=== PATIENT | female | born 1945 | race Hispanic/Latino ===

== ENCOUNTER 2024-07-04 13:29 | Emergency (ER) | payer OTHER ==
[~2024-07-04] VITALS: Ht 152.4 cm; Wt 66.2 kg
[2024-07-04 13:58] LABS: RAPID GROUP A STREP negative (NEGATIVE)
[2024-07-04 14:08] LABS: COVID19 (SARS ANTIGEN RAPID) PRESUMPTIVE NEGATIVE (NEGATIVE); INFLUENZA TYPE A Negative For Type A (NEGATIVE); INFLUENZA TYPE B Negative For Type B (NEGATIVE)
[2024-07-04 14:18] LABS: BASOPHILS # (AUTO) 0.08 K/uL (0.00-0.20); BASOPHILS % (AUTO) 0.9 % (0.0-5.0); EOSINOPHILS # (AUTO) 1.21 K/uL (0.00-0.70); EOSINOPHILS % (AUTO) 13.4 % (0.0-8.0); HEMATOCRIT 33.3 % (36-48); IMMATURE GRANULOCYTE ABSOLUTE 0.03 K/uL (0-1); MEAN CORPUSCULAR HEMOGLOBIN 28.5 pg (27.0-33.0); MEAN CORPUSCULAR HGB CONC 32.1 g/dL (32.0-36.0); MEAN CORPUSCULAR VOLUME 88.8 fL (79-99); MONOCYTES # (AUTO) 0.8 K/uL (0.1-1.0); NEUTROPHILS # (AUTO) 4.9 K/uL (1.8-7.7); NEUTROPHILS % (AUTO) 54.4 % (40.0-77.0); PLATELET COUNT (AUTO) 421 K/uL (130-400); RED BLOOD CELL COUNT(AUTO) 3.75 MIL/uL (4.00-5.50); RED CELL DISTRIBUTION WIDTH 14.8 % (11.0-15.5)
[2024-07-04 14:30] LABS: POTASSIUM 4.1 mmol/L (3.5-5.1)
[2024-07-04 14:40] LABS: ALBUMIN 3.2 g/dL (3.5-5.0); BILIRUBIN,TOTAL 0.2 mg/dL (0.2-1.0); TOTAL PROTEIN, SERUM 7.9 g/dL (6.0-8.3)
[2024-07-04 14:41] LABS: B-TYPE NATRIURETIC PEPTIDE 530 pg/mL (0-100)
[2024-07-04 14:45] VITALS: TEMP 99
[2024-07-04] MEDS: acetaMINOPHEN 500 MG TABLET PO ONE (14:45)
[2024-07-04] MEDS ORDERED: ALBUHFA IH (16:47)
[2024-07-04] MEDS ORDERED: BENZ-39 PO (16:47)
[2024-07-04 17:06] VITALS: BP 141/88; PULSE 86; RESP 18; O2SAT 97
[2024-07-04] MEDS: DEXAMETHASONE SOD PHOSPHATE 4 MG/ML 1ML VIAL IM ONE (17:06)
[2024-07-04] MEDS: FUROSEMIDE 40 MG TABLET PO ONE (17:06)
== END 2024-07-04 17:10 | disposition home or self-care (01) ==
LOC: EDH 13:29
DX: M94.0 Chondrocostal junction syndrome [Tietze] (principal); R05.9 Cough, unspecified; R79.89 Other specified abnormal findings of blood chemistry; E11.65 Type 2 diabetes mellitus with hyperglycemia; I10 Essential (primary) hypertension; I25.10 Atherosclerotic heart disease of native coronary artery without angina pectoris; I49.1 Atrial premature depolarization; Z20.822 Contact with and (suspected) exposure to COVID-19; Z88.0 Allergy status to penicillin; Z95.1 Presence of aortocoronary bypass graft
CPT/HCPCS: 99285; 71045; 87426; 84484; 80053; 83880; 85025; 87880; 87804 ×2; 36415; 96372; 93005; J1100

== ENCOUNTER 2024-08-07 12:26 | Emergency (ER) | payer OTHER ==
[~2024-08-07] VITALS: Ht 152.4 cm; Wt 66.2 kg
[~2024-08-07 12:26] MED LIST: ALBUHFA IH; BENZ-39 PO
--- NOTE | 2024-08-07 12:48 | ERN ---
ED Note History of Present Illness Stated Complaint: CHEST PAIN Chief Complaint: Chest Pain Time Seen by MD: 12:31 Dictation: PATIENT IS A 78-YEAR-OLD FEMALE HERE WITH HER [id number] WITH COMPLAINTS OF BILATERAL AND ANTERIOR CHEST WALL PAIN AND THORACIC PAIN STATUS POST A SAME LEVEL FALL TWO DAYS AGO. SHE STATES SHE WAS ON THE COMMODE HAVING A BOWEL MOVEMENT, SHE STOOD UP AND GOT DIZZY FELL DOWN HIT HER CHEST. NO LOC NO NAUSEA VOMITING. SHE IS ON PLAVIX, DID NOT GO SEE HER PRIMARY CARE DOCTOR NOR DID SHE GET TAKEN TO THE EMERGENCY ROOM. ECCHYMOSIS NOTED MILD LEAD TO LEFT ANTERIOR CHEST AND INFERIOR BREASTS. NO MIDLINE SPINE PAIN NO STEP-OFF. PATIENT IS TENDER TO BILATERAL LATERAL CHEST AND ANTERIOR CHEST DIFFUSELY. BILATERAL BREATH SOUNDS ARE CLEAR LAST TOOK TYLENOL LAST NIGHT. SHE DENIES HIP OR PELVIC PAIN. FULLY AMBULATORY Allergies: Coded Allergies: Penicillins (Unverified Allergy, Unknown, 07/04/24) Home Meds Active Scripts Albuterol Sulfate (Ventolin Hfa/Proventil Hfa/Proair Hfa) 90 Mcg Puff, 2 PUFF IH Q4H for WHEEZING, #1 INHALER 0 Refills Prov:ARMOND SUTTON NP 07/04/24 Benzonatate (Tessalon Perles) 100 Mg Cap, 200 MG PO TID for cough, #60 CAP 0 Refills TWO CAPSULES BY MOUTH EVERY8 HOURS NEEDED FOR COUGH Prov:ARMOND SUTTON NP 07/04/24 Past Medical History Past Medical History: CAD, Diabetes-Type II, High Cholesterol, Hypertension Surgical History: CABG PSYCH History: no pertinent psych hx History: Not Applicable RN Note Reviewed/Agreed w/PFSH: Yes Review of System Dictation CONSTITUTIONAL: NEGATIVE EXCEPT FOR HPI HEAD/FACE: NEGATIVE EXCEPT FOR HPI EENT: NEGATIVE EXCEPT FOR HPI RESPIRATORY: NEGATIVE EXCEPT FOR HPI BILATERAL CHEST WALL TENDERNESS WITH ECCHYMOSIS AND ANTERIOR CHEST WALL GASTROINTESTINAL/ABDOMINAL: NEGATIVE EXCEPT FOR HPI GENITOURINARY: NEGATIVE EXCEPT FOR HPI MUSCULOSKELETAL: NEGATIVE EXCEPT FOR HPI DISTAL THORACIC PAIN NO STEP-OFF INTEGUMENTARY: NEGATIVE EXCEPT FOR HPI NEUROLOGICAL/PSYCH: NEGATIVE EXCEPT FOR HPI HEMATOLOGIC/LYMPHATIC: NEGATIVE EXCEPT FOR HPI ALL SYSTEMS NEGATIVE, EXCEPT NOTED ABOVE. 13 POINT REVIEW OF SYSTEMS ASSESSED AND ALL NEGATIVE EXCEPT FOR ABOVE. Initial Vital Sign VS Vital Signs Date Time Temp Pulse Resp B/P (MAP) Pulse Ox O2 Delivery O2 Flow Rate FiO2 08/07/24 12:31 98.8 74 20 189/83 95 Room Air 08/07/24 12:55 0 21 Physical Exam Dictation VITAL SIGNS REVIEWED GENERAL APPEARANCE: ALERT, ORIENTED X 3, MILD ACUTE DISTRESS, WELL DEVELOPED, NOURISHED. HEAD AND FACE: NON-TRAUMATIC. EYES: PERRL, PINK CONJUNCTIVAS, EYELID NO TRAUMA, ANTERIOR CHAMBER WITH ARCUS SENILIS. EARS: PINNAS INTACT AND NO SIGNS OF TRAUMA OR ERYTHEMA EAR CANALS CLEAR AND NO DISCHARGE TM NO ERYTHEMA NOSE: NO DISCHARGE, NO BLEEDING. OROPHARYNX: MOUTH NORMAL, TONGUE PINK, PHARYNX CLEAR,NO ERYTHEMA, TONSILS NO EXUDATES, NO ABSCESSES NOTED, MUCOUS MEMBRANE MOIST NECK: SUPPLE, NON-TENDER, NO THYROMEGALY, NO MASSES, NO JVD, NO BRUITS BREAST:DEFERRED CHEST: BILATERAL LATERAL AND ANTERIOR CHEST WALL TENDERNESS WITH PALPATION NO FLAIL T, NO CREPITUS, NO PARADOXICAL MOVEMENT, NO RETRACTIONS ECCHYMOSIS NOTED TO LEFT ANTERIOR CHEST AND UNDER LEFT BREAST LUNGS:CLEAR, WELL-VENTILATED, SYMMETRIC, NO RALES, NO WHEEZING, NO RHONCHI, NO STRIDOR, GOOD BREATH SOUNDS BILATERALLY HEART: REGULAR RATE, REGULAR RHYTHM, NO MURMUR, NO GALLOPS VASCULAR: NO PERIPHERAL EDEMA, ABDOMEN: SOFT, POSITIVE BOWEL SOUNDS, NONDISTENDED, NO GUARDING, NONTENDER, NO REBOUND, NO MASSES NO HEPATOMEGALY, NO SPLENOMEGALY, NO GARVEY'S SIGN, NO HERNIAS. RECTAL: DEFERRED GENITAL: DEFERRED NEUROLOGICAL: NORMAL SPEECH, MOTOR FUNCTION INTACT, SENSORY FUNC MILD DIFFUSE LOWER THORACIC SPINE PAIN. NO STEP-OFF, FULL RANGE OF MOTION, EXTREMITIES: NONTENDER, FULL RANGE OF MOTION NO PELVIC OR HIP PAIN SKIN: COLOR PINK, DRY, NO TURGOR, NO RASH, NO LACERATIONS, NO ABRASIONS, NO CONTUSIONS. LYMPHATIC: DEFERRED Results (Laboratory/Radiology) Laboratory/Radiology Laboratory Tests Test 08/07/24 12:50 08/07/24 13:22 08/07/24 13:24 08/07/24 14:11 White Blood Count 11.5 K/uL (4.8-10.8) H Red Blood Count 4.01 MIL/uL (4.00-5.50) Hemoglobin 11.4 g/dL (12.0-16.0) L Hematocrit 35.4 % (36-48) L Mean Corpuscular Volume 88.3 fL (79-99) Mean Corpuscular Hemoglobin 28.4 pg (27.0-33.0) Mean Corpuscular Hemoglobin Concent 32.2 g/dL (32.0-36.0) Red Cell Distribution Width 13.6 % (11.0-15.5) Platelet Count 356 K/uL (130-400) Mean Platelet Volume 9.8 fL (7.5-10.5) Immature Granulocyte % (Auto) 0.4 % (0-1) Neutrophils (%) (Auto) 51.8 % (40.0-77.0) Lymphocytes (%) (Auto) 25.0 % (21.0-51.0) Monocytes (%) (Auto) 7.9 % (3.0-13.0) Eosinophils (%) (Auto) 14.2 % (0.0-8.0) H Basophils (%) (Auto) 0.7 % (0.0-5.0) Neutrophils # (Auto) 6.0 K/uL (1.8-7.7) Lymphocytes # (Auto) 2.9 K/uL (1.0-4.8) Monocytes # (Auto) 0.9 K/uL (0.1-1.0) Eosinophils # (Auto) 1.63 K/uL (0.00-0.70) H Basophils # (Auto) 0.08 K/uL (0.00-0.20) Absolute Immature Granulocyte (auto 0.05 K/uL (0-1) Nucleated Red Blood Cells 0.0 % (0.0-0.19) Sodium Level 142 mmol/L (136-145) Potassium Level 4.9 mmol/L (3.5-5.1) Chloride Level 106 mmol/L (101-111) Carbon Dioxide Level 31 mmol/L (21-32) Blood Urea Nitrogen 17 mg/dL (7-18) Creatinine 1.1 mg/dL (0.5-1.0) H Glomerular Filtration Rate Calc 51 mL/min (>90) Random Glucose 146 mg/dL (70-105) H Total Calcium 9.2 mg/dL (8.5-10.1) Total Creatine Kinase 44 U/L (21-232) Troponin I High Sensitivity 15 ng/L (4-50) B-Type Natriuretic Peptide 320 pg/mL (0-100) H Troponin I < 0.05 ng/mL (0.00-0.05) < 0.05 ng/mL (0.00-0.05) Urine Color COLORLESS (YELLOW) Urine Appearance CLEAR (CLEAR) Urine pH 6.5 (5.0-8.0) Urine Specific [place] 1.007 (1.001-1.031) Urine Protein 10 mg/dL (NEGATIVE) H Urine Glucose (UA) NEGATIVE mg/dL (NEGATIVE) Urine Ketones NEGATIVE mg/dL (NEGATIVE) Urine Occult Blood NEGATIVE (NEGATIVE) Urine Nitrate NEGATIVE (NEGATIVE) Urine Bilirubin NEGATIVE mg/dL (NEGATIVE) Urine Urobilinogen 0.2 mg/dL (0.2-1.0) Urine Leukocyte Esterase NEGATIVE Jerome/uL Urine RBC None /HPF (0-1) Urine WBC 0-1 /HPF (0-1) Urine Squamous Epithelial Cells FEW /HPF (0-2) Urine Bacteria RARE /HPF (None Seen) REASON: BILATERAL AND ANTERIOR CHEST PAIN ECCHYMOSIS FROM FALL TWO DAYS AGO TECHNIQUE: 9 views were obtained. FINDINGS: PA chest x-ray shows clear lungs. Heart size is normal. There is been previous median sternotomy. Bilateral rib series shows normal findings. There are no visible rib fractures. Soft tissues appear unremarkable. IMPRESSION: 1. Negative PA chest x-ray and bilateral rib series. THORACIC SPINE 2VWS REASON: THORACIC SPINE PAIN STATUS POST FALL TWO DAYS AGO COMPARISON: None. TECHNIQUE: 2 images were obtained. FINDINGS: There are normal appearing vertebral bodies. Interspace heights are well preserved. There are no visible fractures. Soft tissues appear unremarkable. IMPRESSION: 1. Normal views of the thoracic spine. Labs Reviewed?: Yes EKG Comment: EKG sinus rhythm/heart rate 75/left atrial enlargement T-wave flattening V5 V6 ED Course ED Course Orders Procedure Category Date Status Time Vital Signs Per CPOE 08/07/24 Transmitted Routine 12:30 B-Type Natriuretic LAB 08/07/24 Complete Peptide 12:30 12 Lead Ekg Tracing- EKG 08/07/24 Logged Technical 12:30 Oxygen By Nc/Pulse Ox CPOE 08/07/24 Transmitted 12:30 Maintain Iv CPOE 08/07/24 Transmitted 12:30 Iv Insertion CPOE 08/07/24 Transmitted 12:30 Cardiac Monitoring CPOE 08/07/24 Transmitted 12:30 Pulse Oximetry With CPOE 08/07/24 Transmitted Vs And Prn 12:30 Cbc With Differential LAB 08/07/24 Complete 12:30 Activity: Br W/Brp CPOE 08/07/24 Transmitted With Assist 12:30 Creatine Kinase, Total LAB 08/07/24 Complete 12:30 Troponin I High LAB 08/07/24 Complete Sensitivity 12:30 Urinalysis Profile LAB 08/07/24 Complete 12:30 Troponin Poc Order LAB 08/07/24 Complete Only 12:30 Bedside Troponin-I LAB.ER 08/07/24 In Process (Poc) 12:30 Basic Metabolic Panel LAB 08/07/24 Complete 12:30 Ribs Bilat [employer] Pa RAD 08/07/24 Resulted Chest 4+Vws 12:44 Acetaminophen With PHA 08/07/24 Complete Codeine (Tylenol-Code 13:00 Thoracic Spine 2vws RAD 08/07/24 Resulted 12:45 Current Medications Medications (Trade) Dose Ordered Sig/Wilfred Route PRN Reason Start Time Stop Time Status Last Admin Dose Admin Acetaminophen/ Codeine Phosphate (TYLenol-coDEINE TAB) 1 tab ONCE ONCE PO 08/07/24 13:00 08/07/24 13:01 DC 08/07/24 12:57 Vital Signs Date Time Temp Pulse Resp B/P (MAP) Pulse Ox O2 Delivery O2 Flow Rate FiO2 08/07/24 14:34 66 14 178/62 97 Room Air* 0 21 08/07/24 12:55 70 19 184/77 98 Room Air* 0 21 08/07/24 12:31 98.8 74 20 189/83 95 Room Air 1525, ALL X-RAYS NEGATIVE CARDIAC WORKUP IS NEGATIVE PATIENT WILL BE DISCHARGED HOME WITH CHEST WALL CONTUSION LUMBAR STRAIN CHRONIC KIDNEY DISEASE. SHE WAS TOLD TO SEE YOUR PRIMARY CARE DOCTOR IN 1-2 DAYS TYLENOL ONLY FOR PAIN HEART Score Response (Comments) Value History: Moderate suspicion (+1) 1 Age: > 65yrs (+2) 2 Risk Factors: 1-2 risk factors (+1) 1 Initial Troponin: Normal limit (0) 0 Total 4 Medical Decision Making [facility] DISCHARGE MAKING BASED ON RADIOLOGY LABS AND EKG. X-RAYS NEGATIVE OF CHEST RIBS AND BACK CARDIAC WORKUP NORMAL PATIENT DISCHARGED HOME WITH CONTUSIONS AND CHRONIC KIDNEY PAIN TOLD TYLENOL ONLY FOR PAIN AND SEE YOUR PRIMARY CARE DOCTOR DX & DISP Disposition: Discharge Departure Impression: Primary Impression: Acute thoracic myofascial strain Additional Impressions: Contusion, chest wall, Chronic kidney disease, Fall Condition: Stable Additional Instructions: FOLLOW-UP WITH PRIMARY CARE PROVIDER IN 1 TO 2 DAYS. TAKE MEDICATIONS DIRECTED HERE IN THE EMERGENCY ROOM. OKAY TO CONTINUE HOME MEDICATIONS UNLESS OTHERWISE DISCUSSED DURING YOUR VISIT IN THE EMERGENCY ROOM TODAY. RETURN TO YOUR NEAREST EMERGENCY ROOM IF SYMPTOMS WORSEN OR IF THERE IS NO IMPROVEMENT. CALL 911 IF YOU NEED IMMEDIATE ASSISTANCE. TAKE TYLENOL OR MOTRIN [id number] NEEDED AND IF NO CONTRAINDICATIONS ARE PRESENT. INCREASE ORAL HYDRATION. A WOUND CULTURE OR URINE CULTURE WAS ORDERED HERE IN THE EMERGENCY ROOM DEPARTMENT PLEASE FOLLOW-UP WITH PRIMARY CARE PROVIDER AND ADVISE THEM TO GET REPEAT PORTS FROM OUR FACILITY. IF YOU HAD ANY FAISAL WRAP/SPLINTS THAT WERE APPLIED HERE, PLEASE DO NOT REMOVE THEM UNTIL YOU SEE YOUR PRIMARY CARE OR SPECIALTY. SUGGEST TYLENOL ARTHRITIS 650 MG/[id number] EVERY 8 HOURS NEEDED FOR PAIN. SEE YOUR PRIMARY CARE DOCTOR Referrals: GINNA NGUYỄN MD (PCP) Time of Disposition: 15:28 I have reviewed the case, and I agree with, Diagnosis and Plan ARMOND SUTTON NP Aug 07, 2024 12:48
[2024-08-07] MEDS: acetaMINOPHEN WITH coDEINE 1 TAB TAB PO ONE (12:57)
[2024-08-07 13:06] LABS: BASOPHILS # (AUTO) 0.08 K/uL (0.00-0.20); BASOPHILS % (AUTO) 0.7 % (0.0-5.0); EOSINOPHILS # (AUTO) 1.63 K/uL (0.00-0.70); EOSINOPHILS % (AUTO) 14.2 % (0.0-8.0); HEMATOCRIT 35.4 % (36-48); IMMATURE GRANULOCYTE ABSOLUTE 0.05 K/uL (0-1); LYMPHOCYTES # (AUTO) 2.9 K/uL (1.0-4.8); MEAN CORPUSCULAR HEMOGLOBIN 28.4 pg (27.0-33.0); MEAN CORPUSCULAR HGB CONC 32.2 g/dL (32.0-36.0); MEAN CORPUSCULAR VOLUME 88.3 fL (79-99); MONOCYTES # (AUTO) 0.9 K/uL (0.1-1.0); MONOCYTES % (AUTO) 7.9 % (3.0-13.0); NEUTROPHILS % (AUTO) 51.8 % (40.0-77.0); PLATELET COUNT (AUTO) 356 K/uL (130-400); RED BLOOD CELL COUNT(AUTO) 4.01 MIL/uL (4.00-5.50); RED CELL DISTRIBUTION WIDTH 13.6 % (11.0-15.5); WHITE BLOOD COUNT (AUTO) 11.5 K/uL (4.8-10.8)
[2024-08-07 13:21] LABS: CREATININE 1.1 mg/dL (0.5-1.0); POTASSIUM 4.9 mmol/L (3.5-5.1)
[2024-08-07 13:30] LABS: B-TYPE NATRIURETIC PEPTIDE 320 pg/mL (0-100)
--- NOTE | 2024-08-07 14:11 | HMCIMG ---
THORACIC SPINE 2VWS REASON: THORACIC SPINE PAIN STATUS POST FALL TWO DAYS AGO COMPARISON: None. TECHNIQUE: 2 images were obtained. FINDINGS: There are normal appearing vertebral bodies. Interspace heights are well preserved. There are no visible fractures. Soft tissues appear unremarkable. IMPRESSION: 1. Normal views of the thoracic spine.
--- NOTE | 2024-08-07 14:12 | HMCIMG ---
[employer] PA CHEST 4+VWS REASON: BILATERAL AND ANTERIOR CHEST PAIN ECCHYMOSIS FROM FALL TWO DAYS AGO TECHNIQUE: 9 views were obtained. FINDINGS: PA chest x-ray shows clear lungs. Heart size is normal. There is been previous median sternotomy. Bilateral rib series shows normal findings. There are no visible rib fractures. Soft tissues appear unremarkable. IMPRESSION: 1. Negative PA chest x-ray and bilateral rib series.
[2024-08-07 14:25] LABS: APPEARANCE,URINE CLEAR (CLEAR); BILIRUBIN,URINE NEGATIVE (NEGATIVE); COLOR,URINE COLORLESS (YELLOW); GLUCOSE, URINE (UA) NEGATIVE (NEGATIVE); KETONES,URINE NEGATIVE (NEGATIVE); LEUKOCYTE ESTERASE ,URINE NEGATIVE Leu/uL (NEGATIVE); NITRATE,URINE NEGATIVE (NEGATIVE); OCCULT BLOOD,URINE NEGATIVE (NEGATIVE); PH,URINE 6.5 (5.0-8.0); PROTEIN,URINE 10 mg/dL (NEGATIVE); UROBILINOGEN,URINE 0.2 mg/dL (0.2-1.0)
[2024-08-07 14:30] LABS: ADD UA MICROSCOPIC YES
[2024-08-07 14:32] LABS: BACTERIA,URINE RARE /HPF (None Seen); SQUAMOUS EPITHELIAL CELL,UR FEW /HPF (0-2); WBC,URINE 0-1 /HPF (0-1)
[2024-08-07 15:49] VITALS: BP 175/65; PULSE 62; RESP 14; TEMP 98.3; O2SAT 97
--- NOTE | 2024-08-08 06:52 | EKG ---
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
== END 2024-08-07 15:54 | disposition home or self-care (01) ==
LOC: EDH 12:26
DX: S20.213A Contusion of bilateral front wall of thorax, initial encounter (principal); M54.6 Pain in thoracic spine; I12.9 Hypertensive chronic kidney disease with stage 1 through stage 4 chronic kidney disease, or unspecified chronic kidney disease; E11.22 Type 2 diabetes mellitus with diabetic chronic kidney disease; R42 Dizziness and giddiness; N18.9 Chronic kidney disease, unspecified; I25.10 Atherosclerotic heart disease of native coronary artery without angina pectoris; E78.00 Pure hypercholesterolemia, unspecified; Z88.0 Allergy status to penicillin; Z79.899 Other long term (current) drug therapy; W18.11XA Fall from or off toilet without subsequent striking against object, initial encounter; Y93.E8 Activity, other personal hygiene; Y92.091 Bathroom in other non-institutional residence as the place of occurrence of the external cause; Y99.8 Other external cause status
CPT/HCPCS: 36415; 71111; 72070; 80048; 81001; 82550; 83880; 84484; 85025; 93005

== ENCOUNTER 2024-08-27 14:41 | Emergency (ER) | payer OTHER ==
[~2024-08-27] VITALS: Ht 152.4 cm; Wt 67.6 kg
--- NOTE | 2024-08-27 15:14 | ERN ---
ED Note History of Present Illness Stated Complaint: PAIN ON HER BACK, LOWER BACK AND CHEST PAIN Chief Complaint: Back Pain-No Injury Time Seen by MD: 14:41 Dictation: PATIENT IS A 78-YEAR-OLD FEMALE HERE WITH HER DAUGHTER WITH COMPLAINTS OF HAVING DIFFUSE ANTERIOR CHEST WALL TENDERNESS WITH LUMBAR AND THORACIC MIDLINE SPINE PAIN STATUS POST A FALL WHILE ON THE HOSPITAL PREMISES ON . ACCORDING TO THE DOCTOR SHE WAS GOING TO RADIOLOGY SHE WHEN SHE FELL. SHE WAS TAKEN BACK TO THE EMERGENCY ROOM WAS X-RAYED AND WAS RELEASED TO HER DOCTOR, SAW HER DOCTOR WHO REFERRED HER TO A CHIROPRACTOR WAS SUPPOSED TO GO YESTERDAY HOWEVER DECIDED TO COME BACK TO THE HOSPITAL TODAY. SHE HAS BEEN TAKEN OUT TYLENOL ONLY FOR PAIN NO SHORTNESS A BREATH NEUROVASCULAR CMS INTACT TO ALL EXTREMITIES. NO STEP-OFFS TO MIDLINE SPINE THORACIC OR LUMBAR. NEGATIVE STRAIGHT LEG RAISE BILATERALLY 10 BILATERALLY Allergies: Coded Allergies: Penicillins (Unverified Allergy, Unknown, 07/04/24) Home Meds Active Scripts Albuterol Sulfate (Ventolin Hfa/Proventil Hfa/Proair Hfa) 90 Mcg Puff, 2 PUFF IH Q4H for WHEEZING, #1 INHALER 0 Refills Prov:ARMOND SUTTON NP 07/04/24 Benzonatate (Tessalon Perles) 100 Mg Cap, 200 MG PO TID for cough, #60 CAP 0 Refills TWO CAPSULES BY MOUTH EVERY8 HOURS NEEDED FOR COUGH Prov:ARMOND SUTTON NP 07/04/24 Past Medical History Past Medical History: CAD, Diabetes-Type II, High Cholesterol, Hypertension Surgical History: CABG History: Not Applicable RN Note Reviewed/Agreed w/PFSH: Yes Review of System Dictation CONSTITUTIONAL: NEGATIVE EXCEPT FOR HPI HEAD/FACE: NEGATIVE EXCEPT FOR HPI EENT: NEGATIVE EXCEPT FOR HPI RESPIRATORY: NEGATIVE EXCEPT FOR HPI DIFFUSE ANTERIOR CHEST WALL TENDERNESS GASTROINTESTINAL/ABDOMINAL: NEGATIVE EXCEPT FOR HPI GENITOURINARY: NEGATIVE EXCEPT FOR HPI MUSCULOSKELETAL: NEGATIVE EXCEPT FOR HPI DIFFUSE LUMBAR AND THORACIC TENDERNESS WITH PALPATION NO STEP-OFF INTEGUMENTARY: NEGATIVE EXCEPT FOR HPI NEUROLOGICAL/PSYCH: NEGATIVE EXCEPT FOR HPI HEMATOLOGIC/LYMPHATIC: NEGATIVE EXCEPT FOR HPI ALL SYSTEMS NEGATIVE, EXCEPT NOTED ABOVE. 13 POINT REVIEW OF SYSTEMS ASSESSED AND ALL NEGATIVE EXCEPT FOR ABOVE. Initial Vital Sign VS Vital Signs Date Time Temp Pulse Resp B/P (MAP) Pulse Ox O2 Delivery O2 Flow Rate FiO2 08/27/24 14:52 99.0 74 14 158/50 96 Room Air 0 Physical Exam Dictation VITAL SIGNS REVIEWED GENERAL APPEARANCE: ALERT, ORIENTED X 3, MODERATE ACUTE DISTRESS, WELL DEVELOPED, NOURISHED. HEAD AND FACE: NON-TRAUMATIC. EYES: PERRL, PINK CONJUNCTIVAS, EYELID NO TRAUMA, ANTERIOR CHAMBER WITH ARCUS SENILIS. EARS: PINNAS INTACT AND NO SIGNS OF TRAUMA OR ERYTHEMA EAR CANALS CLEAR AND NO DISCHARGE TM NO ERYTHEMA NOSE: NO DISCHARGE, NO BLEEDING. OROPHARYNX: MOUTH NORMAL, TONGUE PINK, PHARYNX CLEAR,NO ERYTHEMA, TONSILS NO EXUDATES, NO ABSCESSES NOTED, MUCOUS MEMBRANE MOIST NECK: SUPPLE, NON-TENDER, NO THYROMEGALY, NO MASSES, NO JVD, NO BRUITS BREAST:DEFERRED CHEST DIFFUSE ANTERIOR CHEST WALL TENDERNESS WITH PALPATION NO ECCHYMOSIS, NO CREPITUS, NO PARADOXICAL MOVEMENT, NO RETRACTIONS BILATERAL BREATH SOUNDS CLEAR LUNGS:CLEAR, WELL-VENTILATED, SYMMETRIC, NO RALES, NO WHEEZING, NO RHONCHI, NO STRIDOR, GOOD BREATH SOUNDS BILATERALLY HEART: REGULAR RATE, REGULAR RHYTHM, NO MURMUR, NO GALLOPS VASCULAR: NO PERIPHERAL EDEMA, ABDOMEN: SOFT, POSITIVE BOWEL SOUNDS, NONDISTENDED, NO GUARDING, NONTENDER, NO REBOUND, NO MASSES NO HEPATOMEGALY, NO SPLENOMEGALY, NO GARVEY'S SIGN, NO HERNIAS. RECTAL: DEFERRED GENITAL: DEFERRED NEUROLOGICAL: NORMAL SPEECH, MOTOR FUNCTION INTACT, SENSORY FUNCTION INTACT MUSCULOSKELETAL: NECK NONTENDER, FULL RANGE OF MOTION, DIFFUSE THORACIC AND LUMBAR TENDERNESS,, FULL RANGE OF MOTION, NO STEP-OFFS NO MIDLINE SPINE PAIN. EXTREMITIES: DECREASED RANGE OF MOTION TO BACK SECONDARY TO PAIN. NEGATIVE STRAIGHT LEG RAISE BILATERALLY 10 SKIN: COLOR PINK, DRY, NO TURGOR, NO RASH, NO LACERATIONS, NO ABRASIONS, NO CONTUSIONS. LYMPHATIC: DEFERRED Results (Laboratory/Radiology) Laboratory/Radiology THORACIC SPINE 2VWS HISTORY: Pain COMPARISON: None FINDINGS: 2 images of thoracic spine were obtained. Poststernotomy changes are seen. Degenerative changes are seen with spondylosis. There is straightening of normal lordotic curvature which may be related to muscle spasm or positioning. No loss of vertebral height is seen. No fracture or dislocation is seen. Degenerative changes are seen. IMPRESSION: 1. No fracture is seen. DJD. [employer] PA CHEST 4+VWS HISTORY: Status post fall COMPARISON: 08/07/2024 TECHNIQUE: Frontal projection of the chest was obtained. 6 images of bilateral ribs were obtained. FINDINGS: No acute pulmonary infiltrates is seen. The heart is not enlarged. Poststernotomy changes are seen. Aortic calcifications are seen. There is no acute displaced fracture or dislocation. Degenerative changes are seen. IMPRESSION: 1. Findings as described above. LUMBAR SPINE 2-3VWS HISTORY: Status post fall COMPARISON: None FINDINGS: 3 images of lumbar spine were obtained. Disc space narrowing is seen at the L4-5 and L5-S1 levels. Vascular calcifications are seen. There are degenerative changes with spondylosis. There is straightening of normal lordotic curvature which may be related to muscle spasm or positioning. No loss of vertebral height is seen. No fracture or dislocation is seen. Degenerative changes are seen. IMPRESSION: 1. No fracture is seen. DJD with spondylosis. Labs Reviewed?: Yes ED Course ED Course Orders Procedure Category Date Status Time Lumbar Spine 2-3vws RAD 08/27/24 Resulted 15:11 Thoracic Spine 2vws RAD 08/27/24 Resulted 15:11 Ribs [employer]at [employer] Pa RAD 08/27/24 Resulted Chest 4+Vws 15:11 Acetaminophen With PHA 08/27/24 Complete Codeine (Tylenol-Code 15:30 Current Medications Medications (Trade) Dose Ordered Sig/Wilfred Route PRN Reason Start Time Stop Time Status Last Admin Dose Admin Acetaminophen/ Codeine Phosphate (TYLenol-coDEINE TAB) 2 tab ONCE ONCE PO 08/27/24 15:30 08/27/24 15:31 DC Vital Signs Date Time Temp Pulse Resp B/P (MAP) Pulse Ox O2 Delivery O2 Flow Rate FiO2 08/27/24 14:52 99.0 74 14 158/50 96 Room Air 0 1645, PATIENT STATES PAIN IS REDUCED AFTER TYLENOL THREE. PATIENT AND DAUGHTER MADE AWARE OF NO ACUTE FINDINGS ON X-RAYS OTHER THAN DEGENERATIVE CHANGES. PATIENT AND DAUGHTER TOLD TO KEEP HER APPOINTMENT WITH THE CHIROPRACTOR AND/OR THEIR PRIMARY CARE DOCTOR FOR FOLLOW UP AND MANAGEMENT. AREA Medical Decision Making MDM MEDICAL DISCHARGE MAKING BASED ON X-RAYS OF THORACIC/LUMBAR/BILATERAL RIBS WITH CHEST. ALL X-RAYS WERE NEGATIVE EXCEPT FOR DEGENERATIVE CHANGES PATIENT DISCHARGED HOME WITH TYLENOL NO. 3 FOR SEVERE PAIN RECOMMENDED TYLENOL ARTHRITIS 650 MG/[id number] EVERY8 HOURS NEEDED FOR MILD PAIN. FOLLOW UP WITH A CHIROPRACTOR OR THEIR PRIMARY CARE DOCTOR DIRECTED. ACTIVITY TOLERATED DX & DISP Disposition: Discharge Departure Impression: Primary Impression: Contusion, chest wall Additional Impressions: Contusion of thoracic spine, Lumbar contusion, DJD (degenerative joint disease), lumbar, Fall Condition: Stable Scripts Acetaminophen with Codeine (Acetaminophen-Cod #3 Tablet) 300 Mg-30 Mg Tablet 1 TAB PO Q6H PRN for MODERATE TO SEVERE PAIN, #12 TAB 0 Refills Prov: ARMOND SUTTON NP 08/27/24 Additional Instructions: Follow-up with primary care provider in 1 to 2 days. Take medications as directed here in the emergency room. Okay to continue home medications unless otherwise discussed during your visit in the emergency room today. Return to your nearest emergency room if symptoms worsen or if there is no improvement. Call 911 if you need immediate assistance. Take Tylenol or Motrin [id number] as needed and if no contraindications are present. Increase oral hydration. A wound culture or urine culture was ordered here in the em ergency room department please follow-up with primary care provider and advise them to get repeat ports from our facility. If you had any Dinh wrap/splints that were applied here, please do not remove them until you see your primary care or specialty. Diet and activity as tolerated. Suggest Tylenol Arthritis 650 mg/[id number] every8 hours as needed for pain. Take Tylenol with codeine for severe pain see your primary care doctor and/or chiropractor as suggested by your doctor for follow up and management Referrals: GINNA NGUYỄN MD (PCP) Time of Disposition: 16:49 I have reviewed the case, and I agree with, Diagnosis and Plan ARMOND SUTTON NP Aug 27, 2024 15:14
[2024-08-27] MEDS: acetaMINOPHEN WITH coDEINE 1 TAB TAB PO ONE (15:30)
--- NOTE | 2024-08-27 15:55 | HMCIMG ---
[employer] PA CHEST 4+VWS HISTORY: Status post fall COMPARISON: 08/07/2024 TECHNIQUE: Frontal projection of the chest was obtained. 6 images of bilateral ribs were obtained. FINDINGS: No acute pulmonary infiltrates is seen. The heart is not enlarged. Poststernotomy changes are seen. Aortic calcifications are seen. There is no acute displaced fracture or dislocation. Degenerative changes are seen. IMPRESSION: 1. Findings as described above.
--- NOTE | 2024-08-27 15:56 | HMCIMG ---
LUMBAR SPINE 2-3VWS HISTORY: Status post fall COMPARISON: None FINDINGS: 3 images of lumbar spine were obtained. Disc space narrowing is seen at the L4-5 and L5-S1 levels. Vascular calcifications are seen. There are degenerative changes with spondylosis. There is straightening of normal lordotic curvature which may be related to muscle spasm or positioning. No loss of vertebral height is seen. No fracture or dislocation is seen. Degenerative changes are seen. IMPRESSION: 1. No fracture is seen. DJD with spondylosis.
--- NOTE | 2024-08-27 15:57 | HMCIMG ---
THORACIC SPINE 2VWS HISTORY: Pain COMPARISON: None FINDINGS: 2 images of thoracic spine were obtained. Poststernotomy changes are seen. Degenerative changes are seen with spondylosis. There is straightening of normal lordotic curvature which may be related to muscle spasm or positioning. No loss of vertebral height is seen. No fracture or dislocation is seen. Degenerative changes are seen. IMPRESSION: 1. No fracture is seen. DJD.
[2024-08-27] MEDS ORDERED: ACET-2079 PO (16:49)
--- NOTE | 2024-08-27 18:03 | NUR ---
REQUESTING DISCHARGE PAPERWORK. DECLINED ORDERED TYLENOL W CODEINE STATING WILL FACULTY HEAD PRESCRIPTION.
[2024-08-27 18:04] VITALS: BP 166/51; PULSE 64; RESP 14; TEMP 98.6; O2SAT 96
== END 2024-08-27 18:07 | disposition home or self-care (01) ==
LOC: EDH 14:41
DX: S20.214A Contusion of middle front wall of thorax, initial encounter (principal); S20.219A Contusion of unspecified front wall of thorax, initial encounter; S30.0XXA Contusion of lower back and pelvis, initial encounter; S20.224A Contusion of middle back wall of thorax, initial encounter; E11.9 Type 2 diabetes mellitus without complications; E78.00 Pure hypercholesterolemia, unspecified; I10 Essential (primary) hypertension; I25.10 Atherosclerotic heart disease of native coronary artery without angina pectoris; Z88.0 Allergy status to penicillin; Z95.1 Presence of aortocoronary bypass graft; W18.39XA Other fall on same level, initial encounter; Y93.89 Activity, other specified; Y92.89 Other specified places as the place of occurrence of the external cause; Y99.8 Other external cause status
CPT/HCPCS: 71111; 72070; 72100

== ENCOUNTER 2025-08-07 13:11 | Emergency (ER) | payer OTHER ==
[~2025-08-07] VITALS: Ht 162.6 cm; Wt 63.5 kg
[~2025-08-07 13:11] MED LIST changes: +ACET-2079 PO
--- NOTE | 2025-08-07 13:25 | NUR ---
PATIENT TAKEN TO CT BY ED RN.
[2025-08-07 13:39] LABS: IMMATURE GRANULOCYTE ABSOLUTE 0.02 K/uL (0-1); NUCLEATED RED BLOOD CELLS 0.0 % (0.0-0.19); PLATELET COUNT (AUTO) 274 K/uL (130-400); RED BLOOD CELL COUNT(AUTO) 4.66 MIL/uL (4.00-5.50); RED CELL DISTRIBUTION WIDTH 12.8 % (11.0-15.5); WHITE BLOOD COUNT (AUTO) 11.5 K/uL (4.8-10.8)
--- NOTE | 2025-08-07 13:40 | NUR ---
PATIENT RETURNED FROM CT. DAUGHTER AT BEDSIDE.
--- NOTE | 2025-08-07 13:41 | HMCIMG ---
Exam: NONCONTRAST CT BRAIN REASON: slurred speech. COMPARISON: None. TECHNIQUE: Images are obtained from vertex to the skull base. The exam was performed without IV contrast. 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 The remaining brain parenchyma appears to be normal.. There are no focal mass lesions. There is is no evidence of intracranial hemorrhage or acute stroke. Ventricles and sulci appear normal. Posterior fossa and brainstem structures are unremarkable. Paranasal sinuses and remaining extracranial soft tissues appear normal as well.Is global atrophy with periventricular ischemic white matter changes. There is bilateral hyperostosis frontalis interna. IMPRESSION: 1. No acute intracranial process 2. 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 CT was performed with one or more following dose reduction techniques: automated exposure control, adjustment of the mA and kv according to patient's size, or use of a iterative reconstruction technique.
[2025-08-07 13:52] LABS: ASPARTATE AMINOTRANSFERASE 18.0 U/L (10-37); CREATININE 1.1 mg/dL (0.5-1.0); GLOMERULAR FILTR. RATE CALC 51.0 mL/min (>90); GLUCOSE,RANDOM 127.0 mg/dL (70-105); SODIUM SERUM 140.0 mmol/L (136-145); TOTAL PROTEIN, SERUM 7.5 g/dL (6.0-8.3); UREA NITROGEN, BLOOD 30.0 mg/dL (7-18)
--- NOTE | 2025-08-07 13:53 | EKG ---
[facility] Test Date: 2025-08-07 Test Time: 13:48:44 Pat Name: GEORGINA AGUILAR Department: ED Room: Gender: F Director Adult: [id number] : 1945 Requested By: GULSHAN PURCELL Order Number: [id number] Reading MD: Henry Mathur Measurements Intervals [place] Rate: 59 P: -48 WA: 286 QRS: -14 QRSD: 98 T: 33 QT: 452 QTc: 447 Interpretive Statements Sinus or ectopic atrial rhythm Prolonged WA interval LVH with secondary repolarization abnormality Compared to ECG 08/07/2024 12:19:51 Ectopic atrial rhythm now present Sinus rhythm no longer present Electronically Signed On 08-09-2025 21:39:05 CDT by Henry Mathur Please click the below link to view image of tracing.
[2025-08-07 15:34] LABS: INR 1.0 (0.85-1.15)
[2025-08-07 15:44] LABS: APPEARANCE,URINE CLEAR (CLEAR); GLUCOSE, URINE (UA) >=1000 mg/dL (NEGATIVE); LEUKOCYTE ESTERASE ,URINE NEGATIVE Leu/uL (NEGATIVE); NITRATE,URINE NEGATIVE (NEGATIVE); OCCULT BLOOD,URINE NEGATIVE (NEGATIVE)
[2025-08-07 15:51] LABS: ADD UA MICROSCOPIC YES
--- NOTE | 2025-08-07 15:55 | CONS ---
CONSULT NOTE: [place] [facility] Note # Demographics Consult Type: Acute Stroke Level 2 (4.5-24 hrs) Patient Location: Emergency Room First Name: GEORGINA Last Name: LAUREN Date of : 1945 Age: 79 Gender: Female Facility: [facility] Time of Initial Page (Central Time): 08/07/2025 14:36 First Contact with Site (Central Time): 08/07/2025 14:36 # HPI History: LKN-Last night 2300 Patient is coming to the ER for speech changes along with dizziness. Family noticed that she was slurring her words. She has great instability and also has a history of stroke in the past. H/O CAD, HTN, HLD- on ASA # Scores Time of exam and NIHSS (Central Time): 08/07/2025 15:27 Level of Consciousness 1a: [0] = Alert; keenly responsive LOC Questions 1b: [0] = Answers both questions correctly LOC Commands 1c: [0] = Performs both tasks correctly Best Gaze 2: [0] = Normal Visual 3: [0] = No visual loss Facial Palsy 4: [1] = Minor paralysis Motor Arm Left 5a: [0] = No drift Motor Arm Right 5b: [1] = Drift Motor Leg Left 6a: [0] = No drift Motor Leg Right 6b: [1] = Drift Limb Ataxia 7: [0] = Absent Sensory 8: [0] = Normal Best Language 9: [0] = No aphasia Dysarthria 10: [1] = [id number] dysarthria Extinction and Inattention 11: [0] = No abnormality NIHSS Total: 4 # Assessment Impression: - Ischemic Stroke (Acute) # Plan Thrombolytic/Intervention: Possible IA candidate Thrombolytic Exclusion: > 4.5 hours Possible IA Candidate: - CTA pending Target Blood Pressure: - SBP < 180 - SBP > 140 Labs: - hemoglobin A1c - lipid panel - comprehensive metabolic panel - CBC Imaging: (urgency: STAT): - CT Angiogram Head and CT Angiogram Neck AND call back with results if abnormal Imaging: (urgency: routine): - MRI Brain without contrast Diagnostic Test: - echo without bubble study Therapy/Evaluation: - NPO until swallow evaluation - PT/OT evaluation Medication: - aspirin 81 mg PLUS clopidogrel (Plavix) 75 mg for 21 days, then monotherapy therafter - start statin with goal of LDL < 70 Other: - If patient has any neurological deterioration please call me back immediately - permissive hypertension - LDL < 70 - telemetry monitoring - will need event monitor or loop recorder as outpatient if atrial fibrillation not found as inpatient - neurology referral as outpatient - I have discussed my recommendations with the referring provider Disposition: admit # Demographics First Name: GEORGINA Last Name: AGUILAR Facility: [facility] APRYL SPARKS MD Aug 07, 2025 15:55
--- NOTE | 2025-08-07 15:56 | NUR ---
TELENEURO CALL AT BEDSIDE COMPLETE.
[2025-08-07 16:23] LABS: SQUAMOUS EPITHELIAL CELL,UR RARE /HPF (0-2)
--- NOTE | 2025-08-07 16:35 | NUR ---
TRANSFER REQUEST NEUROLOGY SERVICE PER DR PURCELL . JORGE WORKMAN
--- NOTE | 2025-08-07 17:01 | ERN ---
ED Note History of Present Illness Stated Complaint: UNBALANCED, SLURRED SPEECH Chief Complaint: Slurred Speech Time Seen by MD: 13:16 Dictation: 79-year-old female presenting to the emergency department for unstable gait and slurred speech, patient noticed symptoms this morning when she woke up last time normal was last night before bed. Patient reports able to ambulate due to vertigo type symptoms. Allergies: Coded Allergies: Penicillins (Unverified Allergy, Unknown, 07/04/24) Home Meds Active Scripts Acetaminophen with Codeine (Acetaminophen-Cod #3 Tablet) 300 Mg-30 Mg Tablet, 1 TAB PO Q6H PRN for MODERATE TO SEVERE PAIN, #12 TAB 0 Refills Prov:ARMOND SUTTON INSTALLATION SUPERVISOR 08/27/24 Albuterol Sulfate (Ventolin Hfa/Proventil Hfa/Proair Hfa) 90 Mcg Puff, 2 PUFF IH Q4H for WHEEZING, #1 INHALER 0 Refills Prov:ARMOND SUTTON NP 07/04/24 Benzonatate (Tessalon Perles) 100 Mg Cap, 200 MG PO TID for cough, #60 CAP 0 Refills TWO CAPSULES BY MOUTH EVERY8 HOURS NEEDED FOR COUGH Prov:ARMOND SUTTON NP 07/04/24 Past Medical History Past Medical History: CAD, Dementia, Diabetes-Type II, High Cholesterol, Hypertension Additional Past Medical Hx: AUDIO/VISUAL HALLUCINATIONS Surgical History: CABG History: Not Applicable Review of System Dictation Constitutional: Negative for fever,chills, and weight loss Eyes: Negative for injury, pain,redness, and discharge ENT: Negative for injury,pain or swelling Cardiovascular: Negative for chest pain, palpitations, and edema Respiratory: Negative for shortness of breath, cough, and wheezing, Abdomen/GI: Negative for abdominal pain, nausea, vomiting, diarrhea, and constipation Back: Negative for injury and pain : Negative for injury, bleeding and discharge MS/Extremity: Negative for injury and deformity Skin: Negative for rash, and discoloration Neuro: Per HPI Initial Vital Sign VS Vital Signs Date Time Temp Pulse Resp B/P (MAP) Pulse Ox O2 Delivery O2 Flow Rate FiO2 08/07/25 13:15 98.2 56 16 236/71 97 Room Air* 0 21 Physical Exam Dictation General: awake, alert, NAD Head/Face: Normocephalic, atraumatic Eyes: PERRL, EOMI, vision at baseline ENT: oral cavity clear, TMs clear, no signs of infection Neck: Trachea midline, supple, no nuchal rigidity Cardiovascular: RRR, normal S1/S2, No MRGs, no JVD Respiratory: CTAB, no respiratory distress, No rales or wheezes Abdomen: Soft, non-tender, non-distended, normal bowel sounds, no guarding or rebound. Skin: Warm, dry, normal turgor, no rash MS/Extremity: Pulses equal, no cyanosis, neurovascular intact, FROM Neuro: COAx4, GCS 15, strength 5/5, CN 2-12 intact, unstable gait, NIH stroke scale is 3 Psych: Normal behavior, mood, and affect normal Results (Laboratory/Radiology) Laboratory/Radiology Laboratory Tests Test 08/07/25 13:27 08/07/25 15:01 08/07/25 15:10 White Blood Count 11.5 K/uL (4.8-10.8) H Red Blood Count 4.66 MIL/uL (4.00-5.50) Hemoglobin 12.7 g/dL (12.0-16.0) Hematocrit 39.0 % (36-48) Mean Corpuscular Volume 83.7 fL (79-99) Mean Corpuscular Hemoglobin 27.3 pg (27.0-33.0) Mean Corpuscular Hemoglobin Concent 32.6 g/dL (32.0-36.0) Red Cell Distribution Width 12.8 % (11.0-15.5) Platelet Count 274 K/uL (130-400) Mean Platelet Volume 10.3 fL (7.5-10.5) Immature Granulocyte % (Auto) 0.2 % (0-1) Neutrophils (%) (Auto) 49.0 % (40.0-77.0) Lymphocytes (%) (Auto) 26.3 % (21.0-51.0) Monocytes (%) (Auto) 5.6 % (3.0-13.0) Eosinophils (%) (Auto) 18.0 % (0.0-8.0) H Basophils (%) (Auto) 0.9 % (0.0-5.0) Neutrophils # (Auto) 5.6 K/uL (1.8-7.7) Lymphocytes # (Auto) 3.0 K/uL (1.0-4.8) Monocytes # (Auto) 0.6 K/uL (0.1-1.0) Eosinophils # (Auto) 2.06 K/uL (0.00-0.70) H Basophils # (Auto) 0.10 K/uL (0.00-0.20) Absolute Immature Granulocyte (auto 0.02 K/uL (0-1) Nucleated Red Blood Cells 0.0 % (0.0-0.19) White Cell Morphology Comment See comments Sodium Level 140 mmol/L (136-145) Potassium Level 4.2 mmol/L (3.5-5.1) Chloride Level 103 mmol/L (101-111) Carbon Dioxide Level 30 mmol/L (21-32) Blood Urea Nitrogen 30 mg/dL (7-18) H Creatinine 1.1 mg/dL (0.5-1.0) H Glomerular Filtration Rate Calc 51 mL/min (>90) Random Glucose 127 mg/dL (70-105) H Total Calcium 9.1 mg/dL (8.5-10.1) Total Bilirubin 0.4 mg/dL (0.2-1.0) Direct Bilirubin 0.1 mg/dL (0.0-0.3) Aspartate Amino Transf (AST/SGOT) 18 U/L (10-37) Alanine Aminotransferase (ALT/SGPT) 14 U/L (12-78) Alkaline Phosphatase 115 U/L (50-136) Troponin I High Sensitivity 18 ng/L (4-50) Total Protein 7.5 g/dL (6.0-8.3) Albumin 3.6 g/dL (3.5-5.0) Prothrombin Time 10.6 SEC (9.6-11.6) Prothromb Time International Ratio 1.00 (0.85-1.15) Activated Partial Thromboplast Time 26.5 SEC (26.3-35.5) Urine Color COLORLESS (YELLOW) Urine Appearance CLEAR (CLEAR) Urine pH 6.0 (5.0-8.0) Urine Specific [place] 1.010 (1.001-1.031) Urine Protein 30 mg/dL (NEGATIVE) H Urine Glucose (UA) >=1000 mg/dL (NEGATIVE) H Urine Ketones NEGATIVE mg/dL (NEGATIVE) Urine Occult Blood NEGATIVE (NEGATIVE) Urine Nitrate NEGATIVE (NEGATIVE) Urine Bilirubin NEGATIVE mg/dL (NEGATIVE) Urine Urobilinogen 0.2 mg/dL (0.2-1.0) Urine Leukocyte Esterase NEGATIVE Jerome/uL Labs Reviewed?: Yes EKG Comment: Heart rate 59 normal sinus rhythm no STEMI or STEMI equivalent ED Course ED Course Orders Procedure Category Date Status Time 12 Lead Ekg Tracing- EKG 08/07/25 Complete Technical 13:16 Cbc With Differential LAB 08/07/25 Complete 13:16 Basic Metabolic Panel LAB 08/07/25 Complete 13:16 Hepatic Function Panel LAB 08/07/25 Complete 13:16 Troponin I High LAB 08/07/25 Complete Sensitivity 13:16 Urinalysis Profile LAB 08/07/25 In Process 13:16 Ct Head/Brain W/O CT 08/07/25 Resulted Contrast 13:16 Labetalol 20mg Syg PHA 08/07/25 In Process (Trandate 20mg Syg) 13:30 Pt And Ptt LAB 08/07/25 Complete 13:40 Ct Angio Head And Neck CT 08/07/25 Logged 16:44 Current Medications Medications (Trade) Dose Ordered Sig/Wilfred Route PRN Reason Start Time Stop Time Status Last Admin Dose Admin Labetalol HCl (TRANdate 20MG SYG) 10 mg ONCE IV 08/07/25 13:30 08/07/25 17:30 08/07/25 13:50 Vital Signs Date Time Temp Pulse Resp B/P (MAP) Pulse Ox O2 Delivery O2 Flow Rate FiO2 08/07/25 16:09 97.9 56 16 164/69 98 Room Air* 0 21 08/07/25 15:12 97.9 60 16 195/65 98 Room Air* 0 21 08/07/25 14:07 97.9 57 16 185/63 98 Room Air* 0 21 08/07/25 13:50 62 236/98 08/07/25 13:18 97.9 79 16 238/101 96 Room Air 0 08/07/25 13:15 98.2 56 16 236/71 97 Room Air* 0 21 Medical Decision Making MDM MDM: Differential diagnosis: Rationale: Tests considered and ordered secondary to shared decision making include: labs, ECG and radiology Previous outside records reviewed: Old ER visits. Risk of complication and/or morbidity or mortality of patient management: None Medications-Per medication reconciliation Need for hospitalization: Patient does meet criteria for hospitalization. Need for emergency major/minor surgery: No There are no social concerns with this patient. Prescription drug management Prescriptions will include symptomatic care Patient's prior external medical records from other ER visits were reviewed by me as indicated. Prior testing and results from previous visits were reviewed. Prior tests were taken into account with medical decision making and resource utilization, independent historian/historians were used to obtain complete medical history. I independently interpreted the test that were performed, results were reviewed by me and considered findings on radiology if ordered. Medical management and examination interpretation discussions were had by me with other qualified healthcare professionals as indicated for the patient's care. 79-year-old female with acute CVA symptoms, hypertensive on arrival systolic in the 230s, initial stroke scale of 3 by me, tele neuro reported NIHSS of 4, p atient onset of the thrombolytic window, we will transfer to stroke center for further care and evaluation pending CT angio g to rule out large vessel occlusion. Blood pressure currently at target below 220s and we will allow for permissive hypertension Critical Care Note Comment(s) Total critical care time was 33 minutes. Excluding time for procedures. Management of critically ill patient with concern for acute decompensation. Management included interpretation of laboratory values and imaging, hemodynamics, time for consultation with consultants and admitting physician. NIH STROKE SCALE: NIH STROKE SCALE Response (Comments) Value Level of Consciousness Alert 0 Ask patient month and their age Answers both correct 0 Command to open eyes, make fist and let go Obeys both correct 0 Best gaze (horizontal eye movement) Normal 0 Visual Field Testing No Visual Field Loss 0 Facial Paresis Normal / Symmetrical 0 Motor Function - Left Arm Normal 0 Motor Function - Right Arm Normal 0 Motor Function - Left Leg Normal 0 Motor Function - Right Leg Normal 0 Limb Ataxia No Ataxia 0 Sensory-pin prick to arms, legs, trunk and face Normal 0 Best Language (describe picture, name items and read) No Aphasia 0 Dysarthria (read several words) Mild-Mod. Slurring Words 1 Extinction and Inattention Normal 0 Total DX & DISP Disposition: Transfer Departure Impression: Primary Impression: CVA (cerebral vascular accident) Condition: Stable Referrals: GINNA NGUYỄN MD (PCP) GULSHAN PURCELL MD Aug 07, 2025 17:00
--- NOTE | 2025-08-07 17:08 | NUR ---
TRANSFER CALL PLACE TO [facility] [phone] SPOKE WITH INTAKE NURSE BEATRIZ INFORMATION PROVIDED AND WILL CALL BACK. JORGE WORKMAN
--- NOTE | 2025-08-07 17:15 | NUR ---
TRANSFER BEATRIZ INTAKE NURSE CALL BACK STATES SPOKE WITH ER DOCTOR REQUESTING CT ANGIO RESULTS , ER MADE AWARE. JORGE WORKMAN
[2025-08-07] MEDS ORDERED: IOHEXOL-350 75 ML VIAL IV ONE (17:20)
--- NOTE | 2025-08-07 17:20 | NUR ---
PATIENT TRANSPORTED TO CT BY SALES RECRUITER.
--- NOTE | 2025-08-07 17:40 | NUR ---
PATIENT RETURNED FROM CT. DAUGHTER AT BEDSIDE.
--- NOTE | 2025-08-07 19:54 | HMCIMG ---
EXAM:CTA Head and Neck with and without Intravenous Contrast. CLINICAL HISTORY:CVA TECHNIQUE: Axial CTA images of the head and neck performed with and without intravenous contrast in the arterial phase. Coronal and sagittal reformatted images were generated and reviewed. 3-D reformatted images generated on an independent workstation were also reviewed. NASCET criteria were used in the assessment of stenosis. CONTRAST: Contrast injected without incident. COMPARISON: None provided. FINDINGS: VASCULATURE: NECK: COMMON CAROTID ARTERIES: No significant stenosis. No dissection or occlusion. Mild intimal-medial thickening with calcified plaques in bilateral carotid bulbs. EXTERNAL CAROTID ARTERIES: Patent. INTERNAL CAROTID ARTERIES: No stenosis by NASCET criteria. No dissection or occlusion. VERTEBRAL ARTERIES: No significant stenosis. No dissection or occlusion. Right vertebral artery is hypoplastic. HEAD: INTERNAL CAROTID ARTERIES: Atherosclerotic disease noted with mild narrowing of the right intracranial internal carotid artery ANTERIOR CEREBRAL ARTERIES: No significant stenosis. No occlusion. No aneurysm. MIDDLE CEREBRAL ARTERIES: No significant stenosis. No occlusion. No aneurysm. POSTERIOR CEREBRAL ARTERIES: Right posterior cerebral artery is severely attenuated with paucity of distal branches, suggesting thrombosis. BASILAR ARTERY: No significant stenosis. No occlusion. No aneurysm. OTHER: SOFT TISSUES No acute finding. BONES No acute osseous abnormality. IMPRESSION: Right posterior cerebral artery is severely attenuated with paucity of distal branches, suggesting thrombosis. Mild narrowing of the right intracranial internal carotid artery /[place]
[2025-08-08 00:03] VITALS: BP 163/55; PULSE 68; RESP 18; TEMP 98.4; O2SAT 98
== END 2025-08-08 00:30 | disposition short-term general hospital (02) ==
LOC: EDH 13:11
DX: I63.9 Cerebral infarction, unspecified (principal); G51.0 Bell's palsy; I10 Essential (primary) hypertension; F03.92 Unspecified dementia, unspecified severity, with psychotic disturbance; E78.00 Pure hypercholesterolemia, unspecified; E11.9 Type 2 diabetes mellitus without complications; I25.10 Atherosclerotic heart disease of native coronary artery without angina pectoris; Z86.73 Personal history of transient ischemic attack (TIA), and cerebral infarction without residual deficits; Z88.0 Allergy status to penicillin; Z95.1 Presence of aortocoronary bypass graft
CPT/HCPCS: 99291; 70496; 96374; 80076; 84484; 80048; 85025; 85610; 85730; 81001; 36415; 70498; 93005; 70450; Q9967